=== PATIENT | female | born 1990 | race Caucasian/White ===

== ENCOUNTER 2017-01-07 23:40 | Emergency (ER) | payer SELFPAY ==
[~2017-01-07] VITALS: Ht 160 cm; Wt 5.0 kg
[~2017-01-07 23:40] MED LIST: NOMED
[2017-01-07 23:47] VITALS: BP 93/55; PULSE 99; RESP 18; O2SAT 99
== END 2017-01-08 01:13 | disposition left against medical advice (07) ==
LOC: SED 23:40
DX: S61.012A Laceration without foreign body of left thumb without damage to nail, initial encounter (principal); Z53.21 Procedure and treatment not carried out due to patient leaving prior to being seen by health care provider